=== PATIENT | male | born 1950 | race Caucasian/White ===

== ENCOUNTER 2016-04-15 10:36 | Day surgery (SDC) | payer BC ==
[2016-04-15] MEDS ORDERED: Lidocaine 2.5%/Prilocain 2.5%* 5 GM TUBE ONE (10:37)
[2016-04-15] MEDS ORDERED: Bupivacaine 0.5% SDV PF* 30 ML VIAL ONE (11:06)
[2016-04-15 13:14] VITALS: BP 159/92
--- NOTE | 2016-04-16 03:50 | OP ---
DATE OF OPERATION: 04/15/16 - [facility] DATE OF : 52 SURGEON: Nikos Eaton MD LIGHT BULB TESTER: JORGE Armstrong ANESTHESIOLOGIST: None. ANESTHESIA: Local only with 0.5% Marcaine used to perform a digital block. PRE-OP DIAGNOSIS: Left index finger mass over the radial aspect of the PIP joint. POST-OP DIAGNOSIS: Left index finger mass over the radial aspect of the PIP joint. OPERATIVE PROCEDURE: Excision of left index finger soft tissue mass. INDICATIONS: Mj is a 65-year-old gentleman whom I had done quite a bit of right dorsal finger work after he got his hand cut in a flue blower several months ago. That has healed up well, but he is left with a left index finger mass that is symptomatic as it is over the radial aspect of the PIP joint. We have talked about the risks and benefits. He elected to proceed. ESTIMATED BLOOD LOSS: 2 mL. COMPLICATIONS: None. FINDINGS: Pearly white 3 to 4 mm nodule that had the appearance of a potential epidermal inclusion cyst. DESCRIPTION OF PROCEDURE: Mj was seen in the preoperative holding area and the correct site and side were marked. We had a little time-out and then I performed a digital block with 0.5% Marcaine. We then came back to the operating room where the arm was prepped and draped in the usual fashion. A formal time-out was performed. I exsanguinated the finger and placed tourniquet using the Tournicot. I then made a 1 cm mid axial longitudinal incision right over the mass. The Montezuma blade was then used to release the soft tissues directly through the reactive zone of the mass via marginal excision fashion. Care was taken to preserve the digital nerve. The mass was fully excised. I cauterized a couple of bleeders going to the mass with the bipolar cautery. I then went ahead and irrigated the wound, and the wound was closed with some 5-0 nylon suture. I then released the Tournicot device and the finger pinked up immediately. The wound was dressed with Xeroform, 1-inch Zack, and some Coban. He was then taken to the recovery room in stable condition. [id number]/[facility] #: [id number] MTDD
== END 2016-04-15 13:12 | disposition home or self-care (01) ==
LOC: OREAST 10:36
PROVIDERS: ATTEND Orthopaedic Surgery Hand Surgery
DX: L72.0 Epidermal cyst (principal); Z87.891 Personal history of nicotine dependence
CPT/HCPCS: 88304; A9270-GY

== ENCOUNTER 2017-08-05 16:21 | Inpatient (IN) | payer BC, MEDICARE ==
[2017-08-05] MEDS ORDERED: Heparin VIAL(*) 5000 UNITS/ML VIAL (FIVE THOUSAND) ONE (16:27)
[2017-08-05] MEDS ORDERED: Ticagrelor* 90 MG TAB PO ONE (16:32)
[2017-08-05] MEDS ORDERED: Aspirin 81 mg CHEW TAB* 81 MG TAB.CHEW PO ONE (16:32)
[2017-08-05] MEDS ORDERED: Midazolam* 1 MG/ML 10 ML VIAL (10 MG) ONE (16:55)
[2017-08-05] MEDS ORDERED: fentaNYL* 50 MCG/ML 2 ML VIAL (100 MCG VIAL) ONE ×2 (16:55→17:02)
[2017-08-05] MEDS ORDERED: Heparin VIAL(*) 5000 UNITS/ML VIAL (FIVE THOUSAND) IV SCH (17:00)
[2017-08-05 17:01] LABS: ABS Basophils 0 10^3/ul (0-0.2); ABS Eosinophils 0 10^3/ul (0-0.6); ABS Lymphocytes 0.9 10^3/ul (1.0-4.8); ABS Monocytes 0.3 10^3/ul (0-0.8); ABS Nucleated RBC 0 10^3/ul; Eosinophil % 0.1 % (0-6); Hematocrit 44 % (42-52); Lymphocyte % 8.2 % (25-47); Mean Corpuscular HGB Conc 34 g/dl (31-36); Mean Corpuscular Hemoglobin 28 pg (27-31); Mean Corpuscular Volume 83 fL (80-94); Mean Platelet Volume 9.6 um3 (7.4-10.4); Nucleated Red Blood Cells % 0.1; Platelet Count 190 10^3/ul (150-450); Red Blood Count 5.31 10^6/ul (4.00-5.40); Red Cell Distribution Width 15 % (10.5-15); White Blood Count 11.2 10^3/ul (3.5-10.8)
[2017-08-05 17:18] LABS: EGFR Non-African American 88.1 (>60)
--- NOTE | 2017-08-05 17:19 | ED ---
Jose Luis Godoy Simon, scribed for Zac Martins on 08/05/17 at 1641 . HPI Chest Pain - HPI Summary HPI Summary: This patient is a 66 year old M presenting to [facility] with a chief complaint of CP since 1200 today while mowing the lawn with a self-propelled push mower. 3 NTG, 8 total ASA given, but may have vomited some of the aspirins up. He endorsed several emetic episodes, pain radiating to left arm, jaw, nausea, back pain, all rated by pt as severe. Sx improved currently, just CP. Rest helped minimally, NTG, ASA helped minimally. PMHx GERD. FHx Father CAD diagnosed at age 70s or 80s. Pt quit smoking 10 years ago. STEMI called 1624. - History of Current Complaint Time Seen by Provider: 08/05/17 16:31 Hx Obtained From: Patient, EMS Onset/Duration: Started Hours Ago - 1200 Timing: Constant, Lasting Hours Initial Severity: Severe Current Severity: Moderate Chest Pain Location: Mid Sternal Chest Pain Radiates: Yes Chest Pain Radiates To:: Back, Arm, Jaw Character: Dyspnea at Exertion Aggravating Factor(s): Exertion Alleviating Factor(s): Rest - minimally, Medication - ASA, minimally, NTG 123 - minimally Associated Signs and Symptoms: Positive: Chest Pain, Shortness of Breath, Nausea , Back Pain, Vomiting, Other: - arm, jaw, back radiations - Allergy/Home Medications Allergies/Adverse Reactions: Allergies Allergy/AdvReac Type Severity Reaction Status Date / Time No Known Allergies Allergy Verified 04/15/16 11:14 PMH/Surg Hx/FS Hx/Imm Hx Cardiovascular History: Reports: Hx Coronary Artery Disease, Hx Myocardial Infarction Sensory History: Denies: Hx Legally Blind, Hx Deafness Opthamlomology History: Denies: Hx Contacts or Glasses, Hx Legally Blind EENT History: Denies: Hx Deafness Neurological History: Denies: Hx Dementia, Other Neuro Impairments/Disorders Psychiatric History: Denies: Other Psychiatric Issues/Disorders Infectious Disease History: Denies: Traveled Outside the [place] in Last 30 Days - Family History Known Family History: Positive: Cardiac Disease - Father - Social History Alcohol Use: WEEKENDS A COUPLE Substance Use Type: Reports: None Hx Tobacco Use: Yes Smoking Status (MU): Former Smoker Type: Cigarettes Amount Used/How Often: 1 PPD Length of Time of Smoking/Using Tobacco: 35 YRS Have You Smoked in the Last Year: No Review of Systems Negative: Fever Positive: Chest Pain Positive: Shortness Of Breath Positive: Vomiting, Nausea Positive: Arthralgia - back, jaw, left arm, Myalgia - back, jaw, left arm All Other Systems Reviewed And Are Negative: Yes Physical Exam - Summary Physical Exam Summary: Appearance: Well appearing, no pain distress Skin: warm, dry, reflects adequate perfusion Head/face: normal Eyes: EOMI, PHILIPPE ENT: normal Neck: supple, non-tender Respiratory: CTA, breath sounds present Cardiovascular: RRR, pulses symmetrical Abdomen: non-tender, soft Bowel: present Musculoskeletal: normal, strength/ROM intact Neuro: normal, sensory motor intact, A&Ox3 Triage Information Reviewed: Yes Vital Signs On Initial Exam: Initial Vitals Temp Pulse Resp BP Pulse Ox 97.0 F 70 18 132/76 100 08/05/17 16:21 08/05/17 16:21 08/05/17 16:21 08/05/17 16:21 08/05/17 16:21 Vital Signs Reviewed: Yes Diagnostics - Vital Signs Vital Signs Temp Pulse Resp BP Pulse Ox 08/05/17 16:44 98.0 F 70 18 132/76 100 08/05/17 16:21 97.0 F 70 18 132/76 100 - Laboratory Lab Results: Lab Results 08/05/17 08/05/17 08/05/17 Range/Units 16:42 16:42 16:42 WBC 11.2 H (3.5-10.8) 10^3/ul RBC 5.31 (4.00-5.40) 10^6/ul Hgb 15.0 (14.0-18.0) g/dl Hct 44 (42-52) % MCV 83 (80-94) fL MCH 28 (27-31) pg MCHC 34 (31-36) g/dl RDW 15 (10.5-15) % Plt Count 190 (150-450) 10^3/ul MPV 9.6 (7.4-10.4) um3 Neut % (Auto) 88.6 H (38-83) % Lymph % (Auto) 8.2 L (25-47) % Mckean % (Auto) 2.9 (0-7) % Eos % (Auto) 0.1 (0-6) % Baso % (Auto) 0.2 (0-2) % Absolute Neuts (auto) 10.0 H (1.5-7.7) 10^3/ul Absolute Lymphs (auto) 0.9 L (1.0-4.8) 10^3/ul Absolute Monos (auto) 0.3 (0-0.8) 10^3/ul Absolute Eos (auto) 0 (0-0.6) 10^3/ul Absolute Basos (auto) 0 (0-0.2) 10^3/ul Absolute Nucleated RBC 0 10^3/ul Nucleated RBC % 0.1 Lactic Acid 1.6 (0.5-2.0) mmol/L Blood Type O Positive Antibody Screen Pending Result Diagrams: 08/05/17 16:42 08/05/17 16:42 Lab Statement: Any lab studies that have been ordered have been reviewed, and results considered in the medical decision making process. - EKG 1617 Cardiac Rate: NL - 68 EKG Rhythm: Sinus Rhythm ST Segment: Non-Specific - ST elevation leads I, V5, V6, aVL. lateral/apical STEMI. EKG Interpretation: lateral/apical STEMI. ST elevation leads I, V5, V6, aVL Chest Pain Course/Dx - Course Course Of Treatment: A 66-year-old M presents to the ED with a CC of CP since 1200. (+) CP radiating to back, jaw, left arm (radiating pain currently resolved ), and N/V. (-) background. The episode started upon exertion. CXR reveals ___ . An EKG reveals NSR, lateral/apical STEMI, ST elevation @ leads I, V5, V6, aVL. In the ED course, pt was given heparin, belinta, ASA which (improved or did not). Blood work/UA obtained. - Chest Pain Differential Diagnosis/HQI/PQRI: Acute AL, Other: - stemi - Diagnoses Provider Diagnoses: STEMI (ST elevation myocardial infarction) During the Visit The Following Alert/Code Occurred: STEMI - Provider Notifications Discussed Care Of Patient With: Shimon Agudelo Time Discussed With Above Provider: 16:25 Instructed by Provider To: Admit As Inpatient - dr. agudelo accepted pt for admission. - Critical Care Time Critical Care Time: 30-74 min - 30 Discharge - Sign-Out/Discharge Documenting (check all that apply): Discharge/Admit/Transfer - admit - Discharge Plan Condition: Critical Disposition: ADMITTED TO [facility] - Billing Disposition and Condition Condition: CRITICAL Disposition: Admitted to [facility] The documentation as recorded by the Jose Luis chavez Simon accurately reflects the service I personally performed and the decisions made by Lakshmi stallings Emmanuel.
[2017-08-05 17:21] LABS: INR 0.94 (0.77-1.02)
[2017-08-05] MEDS ORDERED: Zolpidem TAB* 5 MG PO PRN (17:55)
[2017-08-05] MEDS ORDERED: NS 0.9% 500 ML* 500 ML IV ONE (17:55)
[2017-08-05] MEDS ORDERED: Nitroglycerin TAB 0.4 MG* 0.4 MG TAB SL PRN (17:55)
[2017-08-05] MEDS ORDERED: Acetaminophen TAB* 325 MG PO PRN (17:55)
[2017-08-05] MEDS: Metoprolol Tartrate TAB* 25 MG PO SCH (19:23)
[2017-08-05] MEDS ORDERED: Ticagrelor* 90 MG TAB PO SCH (21:00)
[2017-08-05] MEDS: Ticagrelor* 90 MG TAB PO SCH (21:14)
[2017-08-06] MEDS ORDERED: Metoprolol Tartrate TAB* 25 MG PO ONE (03:00)
[2017-08-06] MEDS: Metoprolol Tartrate TAB* 25 MG PO SCH ×4 (05:41→20:50)
--- NOTE | 2017-08-06 08:44 | ECHO ---
Patient: LUCAS LEACH [facility] Rec#: [id number] : 1950 Date: 08/06/2017 Age: 66y Height: 175.26 cm / 69.0 in Weight: 80.29 kg / 177.0 lbs Sex: M BSA: 1.96 Room#: ICU6 Admit Date#: 08/05/2017 Type: Inpatient Referring: Shimon Magana MD Reading: Shanon Sainz MD Clinical Exercise Specialist: Mary Blunt [facility] Transthoracic Echocardiogram Indication: STEMI BP: 99/70 HR: 63 Rhythm: NSR Findings History: STEMI 08/05/17 with PCI. GERD,former smoker,+ family history. Technical Comments: The study quality is good. Completed at 0816. Left Ventricle: The left ventricular chamber size is normal. There is a focal wall motion abnormality present.focal area at the apex of the inferior posterior wall of mile hypokinesis. The estimated ejection fraction is 55-60%. Abnormal left ventricular diastolic function is observed. Left Atrium: The left atrium is mildly dilated. Right Ventricle: The right ventricular cavity size is normal. The right ventricular global systolic function is normal. Right Atrium: The right atrial cavity size is normal. Aortic Valve: The aortic valve is trileaflet. There is no evidence of aortic valve thickening. There is no evidence of aortic regurgitation. There is no evidence of aortic stenosis. Mitral Valve: The mitral valve leaflets appear normal. There is a trace of mitral regurgitation. There is no evidence of mitral stenosis. Tricuspid Valve: The tricuspid valve leaflets are normal. There is trace tricuspid regurgitation. Unable to estimate the right ventricular systolic pressure. There is no tricuspid stenosis. Pulmonic Valve: The pulmonic valve appears normal. There is trace to mild pulmonic regurgitation. There is no pulmonic stenosis. Pericardium: The pericardium appears normal. Aorta: There is no dilatation of the ascending aorta. There is no dilatation of the aortic arch. There is no dilation of the aortic root. Pulmonary Artery: The main pulmonary artery appears normal. Venous: The inferior vena cava appears normal in size. There is a greater than 50% respiratory change in the inferior vena cava dimension. Conclusions The left ventricular chamber size is normal. There is a focal wall motion abnormality present.focal area at the apex of the inferior posterior wall of mile hypokinesis. The estimated ejection fraction is 55-60%. The right ventricular global systolic function is normal. There is a trace of mitral regurgitation. There is trace tricuspid regurgitation. No prior echo to compare. Measurements Name Value Normal Range RVIDd (AP) 2D 2.8 cm (0.9 - 2.6) RVDdMajor (2D) 3.3 cm (2.2 - 4.4) RAd ISD 4CH 4.2 cm (3.4 - 4.9) RA (A4C)W 2.9 cm (2.9 - 4.6) IVSd (2D) 1 cm (0.6 - 1) LVPWd (2D) 1.1 cm (0.6 - 1) LVIDd (2D) 3.9 cm (3.6 - 5.4) LVIDs (2D) 2.7 cm - LV FS (2D) 31 % (25 - 45) Aortic Annulus 1.8 cm (1.4 - 2.6) Ao root diameter (2D) 3.4 cm (2.1 - 3.5) Ascending Ao 2.9 cm (2.1 - 3.4) Aortic arch 2.5 cm (1.8 - 3.4) Descending Ao 0.5 cm - LA dimension (AP) 2D 3.9 cm (2.3 - 3.8) LAd ISD 4CH 4.7 cm (2.9 - 5.3) LA ISD 4CH W 3.9 cm (2.5 - 4.5) Name Value Normal Range LA ESV SP 4CH (A/L) 39 ml - LA ESV SP 2CH (A/L) 31 ml - LA ESV BP (A/L) 37 ml - LA ESV BP (A/L) index 18.76 ml/m2 - LA ESV SP 4CH (MOD) 36 ml - LA ESV SP 2CH (MOD) 30 ml - Name Value Normal Range MV E-wave Vmax 1 m/sec - MV deceleration time 172 msec - MV A-wave Vmax 0.9 m/sec - MV E:A ratio 1.09 ratio - LV septal e' Vmax 0.08 m/sec - LV lateral e' Vmax 0.06 m/sec - LV E:e' septal ratio 12.5 ratio - LV E:e' lateral ratio 16.67 ratio - Name Value Normal Range AV Vmax 1.5 m/sec - AV VTI 24.9 cm - AV peak gradient 8.39 mmHg - AV mean gradient 3.8 mmHg - LVOT Vmax 1.4 m/sec - LVOT VTI 25.8 cm - LVOT peak gradient 7.42 mmHg - LVOT mean gradient 2.82 mmHg - Name Value Normal Range IVC diameter 1.6 cm - Name Value Normal Range PV Vmax 0.6 m/sec - PV peak gradient 1.26 mmHg -
[2017-08-06] MEDS: Aspirin 81 mg CHEW TAB* 81 MG TAB.CHEW PO SCH (09:02)
[2017-08-06] MEDS: Ticagrelor* 90 MG TAB PO SCH ×2 (09:02→20:50)
[2017-08-06] MEDS ORDERED: Metoprolol Tartrate TAB* 25 MG PO SCH (10:00)
[2017-08-06] MEDS: Omeprazole CAP* 20 MG PO SCH (12:11)
[2017-08-06 14:11] LABS: EGFR Non-African American 90.5 (>60)
--- NOTE | 2017-08-06 15:04 | RAD ---
INDICATION: TIA COMPARISON: None TECHNIQUE: Transverse and longitudinal scans of the carotid and vertebral arteries were performed with turner scale, color Doppler, and spectral Doppler imaging. Stenosis criteria is based on flow velocities that correlate with visual internal carotid artery diameter (NASCET criteria) FINDINGS: Right carotid: There is no significant plaque. There is no spectral broadening. The peak systolic velocity of the internal carotid artery is 43 cm/s and the peak diastolic velocity 18 cm/s. The ICA/CCA ratio is calculated at 0.7. There is no measurable stenosis. Left carotid: There is no significant plaque. There is no spectral broadening. The peak systolic velocity of the internal carotid artery is 62 cm/s and the peak diastolic velocity 23 cm/s. The ICA/CCA ratio is calculated at 1.0. There is no measurable stenosis. Right vertebral: Right vertebral waveforms are normal and the flow is antegrade. Left vertebral: Left vertebral waveforms are normal and the flow is antegrade. IMPRESSION: NO MEASURABLE CAROTID STENOSIS CPT II Codes: 3100F [facility] [email or web address]]
--- NOTE | 2017-08-06 15:23 | HP ---
HISTORY AND PHYSICAL: DATE OF ADMISSION: 08/05/17 PRIMARY CARE PHYSICIAN: None. HISTORY OF PRESENT ILLNESS: A 66-year-old male presenting to the ER with acute ST elevation infarct. He is a good historian, has no prior cardiac history. At around noon, he was mowing, developed a central chest pain radiating through to his back and into his jaw, into the left arm, accompanied by nausea and vomiting. This persisted , he finally called the EMS. By the time he arrived in the ER, he still had chest discomfort, but the arm and jaw and back discomfort had improved. His nausea had improved. In hindsight, he has not had any heart failure symptoms, palpitations or syncope, or change in exercise tolerance. PAST MEDICAL HISTORY: Per history, a prior TIA with transient expressive aphasia and right-sided facial drooping, anxiety, GERD which he controls with over-the- counter omeprazole 20 mg daily. PRE-HOSPITAL MEDICATIONS: Omeprazole 20 mg daily. No aspirin. ALLERGIES: None to medications. FAMILY HISTORY: Negative for premature coronary disease. SOCIAL HISTORY: He has not smoked in 10 years. He is . REVIEW OF SYSTEMS: General: No weight loss. No fevers. LEAF STICKER: Prior history of TIA without any workup at that time. Pulmonary: No hemoptysis or cough. GI : No peptic ulcer disease or bleeding. Heme: No history of malignancy or anemia. Circulatory: No claudication. Remainder all negative. PHYSICAL EXAMINATION VITAL SIGNS: In ER, BP 132/76; pulse 70, no ectopy; he is afebrile. HEENT: Without xanthelasma, scleral injection, or jaundice. No arcus. EOMs normal. Cranial nerves intact. NECK: JVP normal at 6. Carotids normal. No bruits. LUNGS: Clear to percussion and auscultation. CARDIAC: Regular rhythm, PMI not palpable. Normal S1, S2. No gallop, murmur, or rub. ABDOMEN: Soft, nontender. Normal bowel sounds. No bruit. Aorta not palpable. Liver not palpable. No masses. Femoral pulses 2+, no bruits. EXTREMITIES: Radial pulses 2+. Pedal pulses 2+. He has no cyanosis, clubbing , or edema. PSYCH: He is oriented and appropriate. SKIN: Warm and perfused. LABORATORY DATA/DIAGNOSTIC STUDIES: CBC notable only for elevated white count of 11,200. BMP with normal creatinine of 0.87, random blood sugar elevated at 155, lactate 1.6. BNP 48. Troponin 0.37, consistent with late presentation. Cholesterol 189, triglycerides 123, LDL 130, HDL 34.9. EKG at 1617 hours on 08/05/17, sinus rhythm, slight ST elevation in aVL, and J- point ST elevation in V5 and V6 with right precordial ST depression consistent with anterolateral infarct with possible posterior involvement. IMPRESSION: 1. ST elevation infarct. He underwent emergent catheterization. He presented late. 2. History of gastroesophageal reflux disease, controlled with omeprazole. 3. History of transient ischemic attack, remote. Had no prior workup and is on no specific therapy. [id number]/[facility] #: [id number] FREDRICK
[2017-08-06] MEDS: Atorvastatin* 80 MG TAB PO SCH (17:12)
--- NOTE | 2017-08-07 02:32 | CATH ---
STENT REPORT: DATE OF PROCEDURE: 08/05/17 PRIMARY CARE PHYSICIAN: None. PROCEDURES: Bilateral selective coronary cineangiography, left heart catheterization, left ventriculography, right radial artery access, aspiration thrombectomy, circumflex stent placement, circumflex 3.25 x 18 Xience Alpine ALEX. HISTORY: A 66-year-old male in good health presenting with acute anterolateral/ posterior ST elevation infarct. PROCEDURE ACCESS: Right radial artery sheath 6F slender. MEDICATIONS: 1. Subcu lidocaine. 2. IV Versed. 3. IV fentanyl. 4. Heparin 3000 units. 5. Verapamil 3 mg. 6. Nitroglycerin 300 mcg IA. Heparin 2000 units, 2000 units IV, nitroglycerin 200 mcg IC post stenting. In the ER, he received a loading dose of Brilinta, aspirin, heparin 4000 units. DIAGNOSTIC CATHETERS: 5F TIG4, 5F L3.5, 5F pigtail. GUIDING CATHETERS: Circumflex 6F VL BU 3.5 wire 14 BMW. After the occlusion was crossed, a large thrombus was evident. After predilatation, this was aspirated with a Pronto aspiration catheter. The circumflex was then stented with a 3.5 x 18 Xience drug-eluting stent and post-dilated with 3.5 x 15 NC balloon to 18 atmospheres distally, 20 atmospheres proximally. LV gram was then performed. HEMODYNAMICS: Initial BP 133/75, LV 118/10-27, no aortic valve gradient on pullback. ANGIOGRAPHY: Left main: The left main is short, has no stenosis. LAD: The LAD is large, extends past the apex, there is mid systolic bridging, the LAD has scattered nonobstructive plaque, it supplies a moderate diagonal, it has no significant stenosis. Circumflex: The circumflex is large, not dominant, supplies small marginal and then is occluded in the mid portion. After circumflex revascularization, there is prompt filling of a single large marginal branch, which supplies the entire obtuse margin, the lower branch has slightly slower flow, it is occluded at its very tip in an area too small to revascularize. The stented segment is widely patent, the stent jails the lower side branch without ostial stenosis. RCA: The RCA is moderate, dominant with a large PDA followed by 3 posterolaterals. The RCA has no significant stenosis. LV gram: Wall motion is normal, there is very localized distal apical hypokinesis. Estimated LVEF 55%. There is no mitral regurgitation. There is ectopy with injection. CONCLUSION: 1. Single vessel disease, circumflex, excellent angiographic result with drug- eluting stent placement. 2. Normal LV systolic function with mild regional wall motion abnormality. 3. Elevated LVDP, otherwise normal left-sided hemodynamics. 4. Successful radial artery access. [id number]/[facility] #: [id number] [facility] MEDICAL CENTERMaribell
[2017-08-07] MEDS: Omeprazole CAP* 20 MG PO SCH (05:44)
[2017-08-07] MEDS: Ticagrelor* 90 MG TAB PO SCH ×2 (09:27→20:07)
[2017-08-07] MEDS: Metoprolol Tartrate TAB* 25 MG PO SCH ×4 (09:27→20:07)
[2017-08-07] MEDS: Aspirin 81 mg CHEW TAB* 81 MG TAB.CHEW PO SCH (09:27)
[2017-08-07] MEDS: Atorvastatin* 80 MG TAB PO SCH (17:19)
[2017-08-07 22:45] LABS: Urine Appearance Clear; Urine Blood Negative (Negative); Urine Color Yellow; Urine Ketones Negative (Negative); Urine Protein Negative (Negative); Urine Specific Gravity 1.019 (1.010-1.030); Urine Urobilinogen Negative (Negative)
[2017-08-08] MEDS: Omeprazole CAP* 20 MG PO SCH (04:59)
[2017-08-08 08:45] VITALS: BP 106/59
[2017-08-08] MEDS: Ticagrelor* 90 MG TAB PO SCH (08:53)
[2017-08-08] MEDS: Aspirin 81 mg CHEW TAB* 81 MG TAB.CHEW PO SCH (08:53)
[2017-08-08] MEDS ORDERED: Metoprolol Succinate XL TAB* 100 MG PO SCH (09:00)
--- NOTE | 2017-08-08 14:15 | DS ---
CC: Shimon Magana M.D. DISCHARGE SUMMARY: DATE OF ADMISSION: 08/05/17 DATE OF DISCHARGE: 08/08/17 PRIMARY CARE: None. DISCHARGE DIAGNOSES: 1. Anterolateral posterior ST-elevation infarct. 2. Anxiety disorder. 3. History of prior transient ischemic attack. 4. Gastroesophageal reflux disease. PROCEDURES: 1. Cardiac cath. 2. Stent placement circumflex 3.25 x 18 Xience ALEX. 3. Echocardiography. CONDITION ON DISCHARGE: Stable. DISCHARGE INSTRUCTIONS: ACTIVITY: No strenuous exertion for 1 week, to walk for 30 minutes daily. FOLLOWUP: 1. Wound check next week with me as scheduled. 2. Acquire primary care physician. DISCHARGE MEDICATIONS: 1. Aspirin 81 mg daily. 2. Lipitor 80 mg daily. 3. Toprol XL 100 mg daily. 4. Nitroglycerin 0.4 sublingual p.r.n. 5. Omeprazole 20 mg daily as before. 6. Brilinta 90 mg b.i.d. DIET: Low fat, low cholesterol, cardiac. HISTORY: See H and P. LABORATORY DATA: His troponin was greater than 81, CPK-MB was measured as high as 238, not peak. CP K peaked at 2937. BMP on 08/06/17 remained normal. Hemoglobin A1c was normal at 5.4. EKG, post-inf arct, demonstrated left anterior hemiblock, minimal J-point elevation in aVL as well as terminal T-wa ve inversion in aVL, and V6, consistent with his posterior infarct. Carotid Duplex showed no obstruc tive carotid disease. HOSPITAL COURSE: He presented with an anterolateral ST-elevation infarct with ST depression in the p recordium, cardiac cath via the radial approach was uncomplicated, demonstrated an occluded circumfle x, which was treated with aspiration thrombectomy followed by stent placement with a 3.25 x 18 Xience Alpine drug-eluting stent. LV gram showed normal wall motion except for minimal apical hypokinesis, EF 55%. Cardiac enzymes were consistent with an infarct, he had no post-infarct complications. He had no angina, heart failure symptoms, arrhythmias. The right radial access site was stable with a pa tent radial artery. He tolerated dual-antiplatelet therapy, high-dose statin, as well as beta-blocka de. He will be followed as an outpatient. Carotid Duplex was performed because of a history of bar te TIA, which was not worked up. He had no carotid disease. [id number]/[facility] #: [id number]
== END 2017-08-08 11:00 | disposition home or self-care (01) | DRG 247 ==
LOC: ED 16:21 → CHICATH 16:47 → ICU 17:58 → MEDTELE 08-06 14:23
PROVIDERS: ADMIT Internal Medicine Cardiovascular Disease; ATTEND Internal Medicine Cardiovascular Disease
PROC: 027034Z Dilation of Coronary Artery, One Artery with Drug-eluting Intraluminal Device, Percutaneous Approach (ICD-10-PCS; 2017-08-05)
PROC: 02C03ZZ Extirpation of Matter from Coronary Artery, One Artery, Percutaneous Approach (ICD-10-PCS; 2017-08-05)
PROC: B2151ZZ Fluoroscopy of Left Heart using Low Osmolar Contrast (ICD-10-PCS; 2017-08-05)
PROC: 4A023N7 Measurement of Cardiac Sampling and Pressure, Left Heart, Percutaneous Approach (ICD-10-PCS; 2017-08-05)
PROC: B2111ZZ Fluoroscopy of Multiple Coronary Arteries using Low Osmolar Contrast (ICD-10-PCS; principal; 2017-08-05 16:30)
DX: I21.09 ST elevation (STEMI) myocardial infarction involving other coronary artery of anterior wall (principal); I21.29 ST elevation (STEMI) myocardial infarction involving other sites; I25.10 Atherosclerotic heart disease of native coronary artery without angina pectoris; K21.9 Gastro-esophageal reflux disease without esophagitis; F41.9 Anxiety disorder, unspecified; Z86.73 Personal history of transient ischemic attack (TIA), and cerebral infarction without residual deficits; Z79.82 Long term (current) use of aspirin; Z79.02 Long term (current) use of antithrombotics/antiplatelets; Z87.891 Personal history of nicotine dependence; Z82.49 Family history of ischemic heart disease and other diseases of the circulatory system; I25.2 Old myocardial infarction; Z72.89 Other problems related to lifestyle
CPT/HCPCS: 36415; 80048; 80053; 80061; 81003; 82550; 82553; 83036; 83605; 83721; 83874; 83880; 84484; 85025; 85610; 85730; 86850; 86900; 86901; 87641; 93005; 93306; 93880; 99285; A9270-GY; C1725; C1757; C1769; C1876; C1887; C9606-LC; J1644; J2250; J3010